=== PATIENT | male | born 1975 | race Caucasian/White ===

== ENCOUNTER 2018-01-31 17:38 | Inpatient (IN) | payer OTHER ==
[2018-01-31 19:51] VITALS: BMI 27.0
--- NOTE | 2018-02-01 01:18 | HP ---
COWS - Scale Resting Pulse: 1= WA 81-100 Sweatin=Flushed/Facial Moisture Restless Observation: 0= Sits Still Pupil Size: 1= Pupils >than Normal Bone or Joint Aches: 2= Severe Diffuse Aches Runny Nose/ Eye Tearin= Nasal Congestion GI Upset > 30mins: 3= Vomiting/Diarrhea (vomiting x 3, diarrhea x 2) Tremor Observation: 2= Slight Tremor Visible Yawning Observation: 0= None Anxiety or Irritability: 2=Irritable/Anxious Goose Flesh Skin: 0=Smooth Skin COWS Score: 14 CIWA Score - CIWA Score Nausea/Vomitin Muscle Tremors: 4-Moderate,w/Arms Extend Anxiety: 3 Agitation: 3 Paroxysmal Sweats: No Perspiration Orientation: 1-Uncertain about Date Tacttile Disturbances: 0-None Auditory Disturbances: 0-None Visual Disturbances: 0-None Headache: 2-Mild CIWA-Ar Total Score: 16 Admission ROS S - HPI Chief Complaint: Alcohol and benzo withdrawal symptoms Allergies/Adverse Reactions: Allergies Allergy/AdvReac Type Severity Reaction Status Date / Time abacavir Allergy Uncoded 02/01/18 01:13 History of Present Illness: 42 years old male with a long history of alcohol and benzo withdrawal symptoms is seeking admission to detox. Patient has been in previous detox and reports 3 years of sobriety. He has medical history of HIV+ and neuropathy. He denies suicide attempt and suicidal ideation at this time Exam Limitations: No Limitations - Ebola screening Have you traveled outside of the country in the last 21 days: No (N) Have you had contact with anyone from an Ebola affected area: No Have you been sick,other than usual withdrawal symptoms: No Do you have a fever: No - Review of Systems Constitutional: Chills, Loss of Appetite, Malaise, Changes in sleep, Weakness EENT: reports: No Symptoms Reported Respiratory: reports: No Symptoms reported GI: reports: Diarrhea, Poor Appetite, Poor Fluid Intake, Vomiting : reports: No Symptoms Reported Musculoskeletal: reports: Back Pain, Joint Pain Integumentary: reports: No Symptoms Reported Neuro: reports: Headache Endocrine: reports: No Symptoms Reported Hematology: reports: No Symptoms Reported Psychiatric: reports: Anxious, Depressed Other Systems: Reviewed and Negative Patient History - Patient Medical History Hx Anemia: No Hx Asthma: No Hx Chronic Obstructive Pulmonary Disease (COPD): No Hx Cancer: No Hx Cardiac Disorders: No Hx Congestive Heart Failure: No Hx Hypertension: No Hx Hypercholesterolemia: No Hx Pacemaker: No HX Cerebrovascular Accident: No Hx Seizures: No Hx Dementia: No Hx Diabetes: No Hx Gastrointestinal Disorders: No Hx Liver Disease: No Hx Genitourinary Disorders: No Hx Sexually Transmitted Disorders: No Hx Renal Disease (ESRD): No Hx Thyroid Disease: No Hx Human Immunodeficiency Virus (HIV): Yes (Combivir, ) Hx Hepatitis C: No Hx Depression: Yes (Not on medication) Hx Suicide Attempt: No (Denies suicide attempt and suicidal ideatio at this time ) Hx Bipolar Disorder: No Hx Schizophrenia: No - Patient Surgical History Past Surgical History: No Hx Neurologic Surgery: No Hx Cataract Extraction: No Hx Cardiac Surgery: No Hx Lung Surgery: No Hx Abdominal Surgery: No Hx Appendectomy: No Hx Cholecystectomy: No Hx Genitourinary Surgery: No Hx Section: No Hx Orthopedic Surgery: No Hx Hysterectomy: No Anesthesia Reaction: No - PPD History Previous Implant?: No (PPD positve) Documented Results: Positive w/o proof Implanted On Prior R Admission?: No PPD to be Administered?: No - Reproductive History Patient is a Female of Child Bearing Age (11 -55 yrs old): No (Male) Patient : No - Smoking Cessation Smoking history: Current every day smoker Have you smoked in the past 12 months: No Aproximately how many cigarettes per day: 10 Hx Chewing Tobacco Use: No Initiated information on smoking cessation: Yes 'Breaking Loose' booklet given: 02/02/18 - Substance & Tx. History Hx Alcohol Use: Yes Hx Substance Use: Yes Substance Use Type: Alcohol, Cocaine, Marijuana, Opiates Hx Substance Use Treatment: Yes - Substances Abused Alcohol Route: Oral Frequency: Daily Amount used: RIDGE 1 PINT Age of first use: 16 Date of Last Use: 01/31/18 Heroin Route: Injection Frequency: 3-6 times per week Amount used: 10 BAGS Age of first use: 16 Date of Last Use: 01/31/18 Alprazolam (Xanax) Route: Oral Frequency: Daily Amount used: 3MG Age of first use: 18 Date of Last Use: 01/31/18 Family Disease History - Family Disease History Family Disease History: Heart Disease: Father (RENAL FAILURE) Admission Physical Exam BHS - Vital Signs Vital Signs: Vital Signs - 24 hr 10/04/18 19:48 Temperature 97.8 F Pulse Rate 87 Respiratory 18 Rate Blood Pressure 168/8 L - Physical General Appearance: Yes: Moderate Distress HEENTM: Yes: Normal ENT Inspection, Normocephalic, Normal Voice, HALINA Respiratory: Yes: Lungs Clear, Normal Breath Sounds, No Respiratory Distress Neck: Yes: Supple Breast: Yes: Breast Exam Deferred Cardiology: Yes: Regular Rhythm, Regular Rate Abdominal: Yes: Normal Bowel Sounds Genitourinary: Yes: Within Normal Limits Back: Yes: Normal Inspection Musculoskeletal: Yes: Back pain, Muscle Pain Extremities: Yes: Tremors Neurological: Yes: bathroom tiling professional II-XII NML intact, Fully Oriented, Motor Strength 5/5, Normal Mood/Affect Integumentary: Yes: Warm Lymphatic: Yes: Within Normal Limits - Diagnostic (1) HIV (human immunodeficiency virus infection) Current Visit: Yes Status: Chronic (2) Depression Current Visit: Yes Status: Acute Qualifiers: Depression Type: unspecified Qualified Code(s): F32.9 - Major depressive disorder, single episode, unspecified Cleared for Admission [facility] - Detox or Rehab [facility] Level of Care: Medically Managed Detox Regimen/Protocol: Librium [facility] Breath Alcohol Content Breath Alcohol Content: 0.075 Urine Drug Screen - Results Drug Screen Negative: No Urine Drug Screen Results: BELA-Cocaine, BZO-Benzodiazepines, MTD-Methadone, OXY- Oxycodone
[2018-02-01] MEDS ORDERED: MAGNESIUM CITRATE 300 ML BOTTLE PO PRN (02:58)
[2018-02-01] MEDS ORDERED: MENTHOL/PHENOL 1 EACH UD MM PRN (02:58)
[2018-02-01] MEDS ORDERED: MAGNESIUM HYDROX 2400MG/30ML ORAL SUSPENSION 30 ML CUP PO PRN (02:58)
[2018-02-01] MEDS ORDERED: IBUPROFEN 400 MG TABLET (FP) PO PRN (02:58)
[2018-02-01] MEDS ORDERED: LOPERAMIDE HCL 2 MG CAPSULE PO PRN (02:58)
[2018-02-01] MEDS ORDERED: chlordiazePOXIDE HCL 25 MG CAPSULE PO PRN (02:58)
[2018-02-01] MEDS ORDERED: guaiFENesin/D-METHORPHAN HB 10 ML UNIT-DOSE CUPS PO PRN (02:58)
[2018-02-01] MEDS ORDERED: P-EPHED 60MG/TRIPROLIDI 2.5MG TABLET PO PRN (02:58)
[2018-02-01] MEDS ORDERED: ACETAMINOPHEN 325 MG TABLET (FP) PO PRN (02:58)
[2018-02-01] MEDS ORDERED: NICOTINE POLACRILEX 2 MG GUM BC PRN (02:58)
[2018-02-01] MEDS: MAG HYDROX/AL HYDROX/SIMETH 30 ML UNIT-DOSE CUP PO PRN ×2 (03:54→22:20)
[2018-02-01] MEDS: chlordiazePOXIDE HCL 25 MG CAPSULE PO SCH ×4 (06:19→22:18)
[2018-02-01] MEDS ORDERED: METHADONE HCL 5 MG TABLET PO SCH (09:45)
[2018-02-01] MEDS: NICOTINE 14 MG/24 HOURS TOPICAL PATCH TD SCH (10:20)
[2018-02-01] MEDS: PRENATAL VITAMINS W/ FOLIC ACID TABLET (FP) PO SCH (10:20)
[2018-02-01] MEDS ORDERED: METHADONE HCL 40 MG DISPERSABLE TABLET ONE ×2 (10:22→10:25)
[2018-02-01] MEDS ORDERED: METHADONE HCL 10 MG TABLET ONE (10:23)
[2018-02-01] MEDS: METHADONE 200 MG, METHADONE 20 MG PO SCH (10:26)
[2018-02-01] MEDS ORDERED: FLU VACCINE QUAD 60 MCG/0.5 ML (MDV 18-19) IM ONE (12:00)
--- NOTE | 2018-02-01 12:29 | PN ---
BHS CIWA - CIWA Score Nausea/Vomitin Muscle Tremors: 3 Anxiety: 2 Agitation: 0-Normal Activity Paroxysmal Sweats: 3 Orientation: 0-Oriented Tacttile Disturbances: 0-None Auditory Disturbances: 0-None Visual Disturbances: 0-None Headache: 2-Mild CIWA-Ar Total Score: 13 BHS Progress Note (SOAP) Subjective: PATIENT PRESENTS WITH HEADACHE, SWEATS, SHAKES AND DIARRHEA Objective: 02/01/18 12:27 Vital Signs Temperature 96.6 F L 02/01/18 09:41 Pulse Rate 53 L 02/01/18 09:41 Respiratory Rate 18 02/01/18 09:41 Blood Pressure 125/63 02/01/18 09:41 O2 Sat by Pulse Oximetry (%) PE: SKIN WARM AND MOIST ALERT AND ORIENTED CAR S1S2 RESP CTA BL GI SOFT, BS+, NT EXT +TREMORS PSYCH ANXIOUS NEURO PUPILS MODERATELY DILATED Assessment: 02/01/18 12:28 WITHDRAWAL SYNDROME Plan: CONTINUE DETOX ORDERED ENCOURAGE ORAL FLUIDS CONTINUE IMMODIUM PRN CONTINUE TO MONITOR
--- NOTE | 2018-02-01 13:35 | CONSULT ---
[facility] Psychiatric Consult - Data Date of interview: 02/01/18 Admission source: [facility] Identifying data: First admission to [facility] for this 42 y/o male seeking detoxification treatment,on , for heroin,xanax and alcohol dependence.Patient is ,a father of two,homeless,unemployed and supported on SSI benefits. Substance Abuse History: Confirmed by the patient in gthis interview.Details in current [facility] report as follows : Smoking history: Current every day smoker. Have you smoked in the past 12 months: No. Aproximately how many cigarettes per day: 10. Hx Chewing Tobacco Use: No. Initiated information on smoking cessation: Yes. 'Breaking Loose' booklet given: 02/02/18. - Substance & Tx. History. Hx Alcohol Use: Yes. Hx Substance Use: Yes. Substance Use Type: Alcohol, Cocaine, Marijuana, Opiates. Hx Substance Use Treatment: Yes. - Substances Abused. Alcohol. Route: Oral. Frequency: Daily. Amount used: RIDGE 1 PINT. Age of first use: 16. Date of Last Use: 01/31/18. Heroin. Route: Injection. Frequency: 3-6 times per week. Amount used: 10 BAGS. Age of first use: 16. Date of Last Use: 01/31/18. Alprazolam (Xanax). Route: Oral. Frequency: Daily. Amount used: 3MG. Age of first use: 18. Date of Last Use: 01/31/18 Medical History: HIV infection (on HAART medications). Psychiatric History: Patient denies. Physical/Sexual Abuse/Trauma History: Patient informs that he served 12 years in the [employer]. Discharged in 2005. Saw combat operations on various theaters ([place] + [place]).No nightmares or flashbacks reported in this session. Additional Comment: Urine Drug Screen Results: BELA-Cocaine, BZO-Benzodiazepines , MTD-Methadone, OXY-Oxycodone.Noted. Mental Status Exam - Mental Status Exam Alert and Oriented to: Time, Place, Person Cognitive Function: Good Patient Appearance: Disheveled Mood: Nervous, Withdrawn, Anxious Affect: Mood Congruent Patient Behavior: Fatigued, Cooperative Speech Pattern: Clear, Appropriate Voice Loudness: Normal Thought Process: Goal Oriented Thought Disorder: Not Present Hallucinations: Denies Suicidal Ideation: Denies Homicidal Ideation: Denies Insight/Judgement: Poor Sleep: Poorly (wants trazodone ), Difficulty falling asleep Appetite: Good Muscle strength/Tone: Normal Gait/Station: Normal Psychiatric Findings - Problem List (Horace 1, 2,3) (1) Opioid dependence on agonist therapy Current Visit: Yes Status: Acute (2) Alcohol dependence Current Visit: Yes Status: Acute (3) Nicotine dependence Current Visit: Yes Status: Acute (4) Substance induced mood disorder Current Visit: Yes Status: Acute (5) Insomnia Current Visit: Yes Status: Acute - Initial Treatment Plan Initial Treatment Plan: Psychoeducation.Sleep hygiene.Detoxification in progress.Trazodone 50 mg po hs. Side effects/benefits discussed with the patient.Made aware of risk of priapism.Mr Cavazos agrees to this careplan.Observation.
[2018-02-01] MEDS ORDERED: MELATONIN 5 MG TABLETS PO PRN (22:00)
[2018-02-01] MEDS: THIAMINE HCL 100 MG TABLET (FP) PO SCH (22:18)
[2018-02-01] MEDS: traZODone HCL 50 MG TABLET (FP) PO SCH (22:18)
[2018-02-02] MEDS ORDERED: METHADONE HCL 40 MG DISPERSABLE TABLET ONE (04:27)
[2018-02-02] MEDS ORDERED: METHADONE HCL 10 MG TABLET ONE (04:27)
[2018-02-02] MEDS: chlordiazePOXIDE HCL 25 MG CAPSULE PO SCH ×4 (05:32→22:36)
[2018-02-02] MEDS: METHADONE 200 MG, METHADONE 20 MG PO SCH (05:32)
[2018-02-02 10:08] LABS: HEMATOCRIT 32.1 % (35.4-49); HEMOGLOBIN 10.6 GM/dL (11.7-16.9); MCH 38.3 pg (25.7-33.7); PLATELET COUNT 184 K/MM3 (134-434); RBC 2.77 M/mm3 (4.00-5.60); RDW 14.3 % (11.9-15.9); WHITE BLOOD COUNT 3.5 K/mm3 (4.0-10.0)
[2018-02-02] MEDS: NICOTINE 14 MG/24 HOURS TOPICAL PATCH TD SCH (10:28)
[2018-02-02] MEDS: PRENATAL VITAMINS W/ FOLIC ACID TABLET (FP) PO SCH (10:28)
[2018-02-02 10:53] LABS: ALBUMIN 2.7 g/dl (3.4-5.0); ALK PHOS 72 U/L (45-117); ANION GAP 4 MMOL/L (8-16); BILIRUBIN,TOTAL 0.2 mg/dL (0.2-1); BLOOD UREA NITROGEN 20 mg/dL (7-18); CALCIUM 8.5 mg/dL (8.5-10.1); CHLORIDE 105 mmol/L (98-107); CO2 29 mmol/L (21-32); CREATININE 1.7 mg/dL (0.55-1.3); GLUCOSE,RANDOM 95 mg/dL (74-106); POTASSIUM 4.4 mmol/L (3.5-5.1); SGOT/AST 25 U/L (15-37); SGPT/ALT 27 U/L (13-61); SODIUM 139 mmol/L (136-145)
--- NOTE | 2018-02-02 11:55 | PN ---
S CIWA - CIWA Score Nausea/Vomitin-Mild Nausea/No Vomiting Muscle Tremors: 2 Anxiety: 2 Agitation: 1-Slight > Activity Paroxysmal Sweats: 2 Orientation: 0-Oriented Tacttile Disturbances: 1-Very Mild Itch/Numbness Auditory Disturbances: 0-None Visual Disturbances: 0-None Headache: 0-None Present CIWA-Ar Total Score: 9 BHS Progress Note (SOAP) Subjective: PATIENT C/O ANXIETY, SHAKES, MILD NAUSEA AND NUMBNESS/TINGLING TO FINGERS. PATIENT REQUESTING HIV MEDICATION. STATES HE IS TREATED BY DR. BLANCO FROM [facility]. REPORTS COMPLIANCE WITH MEDICATION UP UNTIL DAY OF ADMISSION BUT FORGOT MEDICATION AT HOME. Objective: 02/02/18 11:56 Vital Signs Temperature 98.8 F 02/02/18 10:32 Pulse Rate 83 02/02/18 10:32 Respiratory Rate 18 02/02/18 10:32 Blood Pressure 139/69 02/02/18 10:32 O2 Sat by Pulse Oximetry (%) Laboratory Tests 02/02/18 02/02/18 02/02/18 08:00 08:00 08:00 WBC 3.5 L RBC 2.77 L Hgb 10.6 L Hct 32.1 L MCV 116.0 H MCH 38.3 H MCHC 33.0 RDW 14.3 Plt Count 184 MPV 8.0 Sodium 139 Potassium 4.4 Chloride 105 Carbon Dioxide 29 Anion Gap 4 L BUN 20 H Creatinine 1.7 H Creat Clearance w eGFR 44.00 Random Glucose 95 Calcium 8.5 Total Bilirubin 0.2 AST 25 ALT 27 Alkaline Phosphatase 72 Total Protein 7.0 Albumin 2.7 L RPR Titer Nonreactive SKIN WARM AND DRY ALERT AND ORIENTED CAR S1S2 RESP CTA BL EXT +TREMORS, FULL ROM +ANXIOUS Assessment: 02/02/18 11:58 WITHDRAWAL SYNDROME Plan: CONTINUE DETOX ENCOURAGE ORAL FLUIDS CONTINUE TO MONITOR CLINICALLY ANTIVIRAL MEDICATION CONFIRMED IN OUT PATIENT SUMMARY. LAST PRESCRIPTION FOR PREZISTA, LAMIVUDINE/ZIDOVUDINE, NORVIR LAST FILLED 01/14/18 AND [facility]. HIV MEDICATION ORDERED
[2018-02-02] MEDS: RITONAVIR 100 MG TABLET PO SCH ×2 (14:50→22:37)
[2018-02-02] MEDS: DARUNAVIR ETHANOLATE 600 MG TAB PO SCH ×2 (14:52→22:37)
[2018-02-02] MEDS: lamiVUDine/ZIDOVUDINE 150/300 1 COMBO TABLET PO SCH ×2 (16:04→22:36)
--- NOTE | 2018-02-02 17:32 | EKG ---
Test Reason : Blood Pressure : / mmHG Vent. Rate : 061 BPM Atrial Rate : 061 BPM P-R Int : 150 ms QRS Dur : 098 ms QT Int : 424 ms P-R-T Axes : 062 076 058 degrees QTc Int : 426 ms NORMAL SINUS RHYTHM NORMAL ECG NO PREVIOUS ECGS AVAILABLE Confirmed by ESTEE MUNGUIA, LUCY ([id number]) on 02/02/2018 5:32:03 PM Referred By: Confirmed By:LUCY FONTANEZ MD
[2018-02-02] MEDS: traZODone HCL 50 MG TABLET (FP) PO SCH (22:36)
[2018-02-02] MEDS: THIAMINE HCL 100 MG TABLET (FP) PO SCH (22:37)
[2018-02-03] MEDS ORDERED: METHADONE HCL 10 MG TABLET ONE (04:16)
[2018-02-03] MEDS ORDERED: METHADONE HCL 40 MG DISPERSABLE TABLET ONE (04:16)
[2018-02-03] MEDS: METHADONE 200 MG, METHADONE 20 MG PO SCH (05:57)
[2018-02-03] MEDS: chlordiazePOXIDE 5 MG CAPSULE PO SCH ×4 (05:58→22:03)
[2018-02-03] MEDS: PRENATAL VITAMINS W/ FOLIC ACID TABLET (FP) PO SCH (10:13)
[2018-02-03] MEDS: NICOTINE 14 MG/24 HOURS TOPICAL PATCH TD SCH (10:13)
[2018-02-03] MEDS: RITONAVIR 100 MG TABLET PO SCH ×2 (10:14→22:02)
[2018-02-03] MEDS: DARUNAVIR ETHANOLATE 600 MG TAB PO SCH ×2 (10:14→22:02)
[2018-02-03] MEDS: lamiVUDine/ZIDOVUDINE 150/300 1 COMBO TABLET PO SCH ×2 (10:14→22:02)
--- NOTE | 2018-02-03 12:39 | PN ---
S Progress Note (SOAP) Subjective: joints pain sweat tremor reported history of renal insufficiency negative sonogram follow up with nephrology Objective: 02/03/18 12:38 Vital Signs Temperature 98.3 F 02/03/18 10:29 Pulse Rate 81 02/03/18 10:29 Respiratory Rate 18 02/03/18 10:29 Blood Pressure 117/72 02/03/18 10:29 O2 Sat by Pulse Oximetry (%) Laboratory Last Values WBC 3.5 K/mm3 (4.0-10.0) L 02/02/18 08:00 RBC 2.77 M/mm3 (4.00-5.60) L 02/02/18 08:00 Hgb 10.6 GM/dL (11.7-16.9) L 02/02/18 08:00 Hct 32.1 % (35.4-49) L 02/02/18 08:00 MCV 116.0 fl (80-96) H 02/02/18 08:00 MCH 38.3 pg (25.7-33.7) H 02/02/18 08:00 MCHC 33.0 g/dl (32.0-35.9) 02/02/18 08:00 RDW 14.3 % (11.9-15.9) 02/02/18 08:00 Plt Count 184 K/MM3 (134-434) 02/02/18 08:00 MPV 8.0 fl (7.5-11.1) 02/02/18 08:00 Sodium 139 mmol/L (136-145) 02/02/18 08:00 Potassium 4.4 mmol/L (3.5-5.1) 02/02/18 08:00 Chloride 105 mmol/L (98-107) 02/02/18 08:00 Carbon Dioxide 29 mmol/L (21-32) 02/02/18 08:00 Anion Gap 4 MMOL/L (8-16) L 02/02/18 08:00 BUN 20 mg/dL (7-18) H 02/02/18 08:00 Creatinine 1.7 mg/dL (0.55-1.3) H 02/02/18 08:00 Creat Clearance w eGFR 44.00 (>60) 02/02/18 08:00 Random Glucose 95 mg/dL (74-106) 02/02/18 08:00 Calcium 8.5 mg/dL (8.5-10.1) 02/02/18 08:00 Total Bilirubin 0.2 mg/dL (0.2-1) 02/02/18 08:00 AST 25 U/L (15-37) 02/02/18 08:00 ALT 27 U/L (13-61) 02/02/18 08:00 Alkaline Phosphatase 72 U/L (45-117) 02/02/18 08:00 Total Protein 7.0 g/dl (6.4-8.2) 02/02/18 08:00 Albumin 2.7 g/dl (3.4-5.0) L 02/02/18 08:00 RPR Titer Nonreactive (NONREACTIVE) 02/02/18 08:00 lab noted patient is trying to find someone to bring in hiv [facility]on Assessment: 02/03/18 12:39 withdrawal sx Plan: continue detox
[2018-02-03] MEDS: THIAMINE HCL 100 MG TABLET (FP) PO SCH (22:02)
[2018-02-03] MEDS: MAG HYDROX/AL HYDROX/SIMETH 30 ML UNIT-DOSE CUP PO PRN (22:02)
[2018-02-03] MEDS: traZODone HCL 50 MG TABLET (FP) PO SCH (22:03)
[2018-02-04] MEDS ORDERED: METHADONE HCL 40 MG DISPERSABLE TABLET ONE (05:17)
[2018-02-04] MEDS ORDERED: METHADONE HCL 10 MG TABLET ONE (05:18)
[2018-02-04] MEDS: chlordiazePOXIDE HCL 10 MG CAPSULE PO SCH ×3 (05:46→18:29)
[2018-02-04] MEDS: METHADONE 200 MG, METHADONE 20 MG PO SCH (05:46)
[2018-02-04 10:11] LABS: HEMATOCRIT 37.5 % (35.4-49); HEMOGLOBIN 12.2 GM/dL (11.7-16.9); MCH 38.5 pg (25.7-33.7); MCHC 32.6 g/dl (32.0-35.9); MEAN CELL VOLUME 118.1 fl (80-96); MEAN PLT VOLUME 7.6 fl (7.5-11.1); PLATELET COUNT 232 K/MM3 (134-434); RBC 3.17 M/mm3 (4.00-5.60); RDW 14.9 % (11.9-15.9); WHITE BLOOD COUNT 4.4 K/mm3 (4.0-10.0)
[2018-02-04 10:31] LABS: ALBUMIN 3.3 g/dl (3.4-5.0); ALK PHOS 79 U/L (45-117); ANION GAP 2 MMOL/L (8-16); BILIRUBIN,TOTAL 0.2 mg/dL (0.2-1); BLOOD UREA NITROGEN 23 mg/dL (7-18); CALCIUM 9.6 mg/dL (8.5-10.1); CHLORIDE 105 mmol/L (98-107); CO2 31 mmol/L (21-32); CREATININE 1.8 mg/dL (0.55-1.3); GLUCOSE,RANDOM 84 mg/dL (74-106); POTASSIUM 4.7 mmol/L (3.5-5.1); SGOT/AST 20 U/L (15-37); SGPT/ALT 27 U/L (13-61); SODIUM 138 mmol/L (136-145); TOT PROT 8.1 g/dl (6.4-8.2)
[2018-02-04] MEDS: PRENATAL VITAMINS W/ FOLIC ACID TABLET (FP) PO SCH (11:04)
[2018-02-04] MEDS: RITONAVIR 100 MG TABLET PO SCH (11:04)
[2018-02-04] MEDS: DARUNAVIR ETHANOLATE 600 MG TAB PO SCH (11:04)
[2018-02-04] MEDS: NICOTINE 14 MG/24 HOURS TOPICAL PATCH TD SCH (11:06)
[2018-02-04] MEDS: lamiVUDine/ZIDOVUDINE 150/300 1 COMBO TABLET PO SCH (11:07)
--- NOTE | 2018-02-04 15:33 | DS ---
[facility] Detox Discharge Summary Admission Date: 02/01/18 Discharge Date: 02/04/18 - History Present History: Alcohol Dependence, Opioid Dependence, Sedative Dependence Additional Comments: 42 years old male admitted on 02/01/18 for alcohol benzo and opiate withdrawal sx completed detox regimen tolerated well denies alcohol withdrawal sx alert oriented x 3 no acute distress aftercare revelation - Physical Exam Results Vital Signs: Vital Signs Temperature 98.6 F 02/04/18 13:07 Pulse Rate 78 02/04/18 13:07 Respiratory Rate 18 02/04/18 13:07 Blood Pressure 130/65 02/04/18 13:07 O2 Sat by Pulse Oximetry (%) Pertinent Admission Physical Exam Findings: alcohol benzo opiate withdrawal sx Vital Signs Temperature 98.6 F 02/04/18 13:07 Pulse Rate 78 02/04/18 13:07 Respiratory Rate 18 02/04/18 13:07 Blood Pressure 130/65 02/04/18 13:07 O2 Sat by Pulse Oximetry (%) Laboratory Last Values WBC 4.4 K/mm3 (4.0-10.0) 02/04/18 07:30 RBC 3.17 M/mm3 (4.00-5.60) L 02/04/18 07:30 Hgb 12.2 GM/dL (11.7-16.9) 02/04/18 07:30 Hct 37.5 % (35.4-49) D 02/04/18 07:30 MCV 118.1 fl (80-96) H 02/04/18 07:30 MCH 38.5 pg (25.7-33.7) H 02/04/18 07:30 MCHC 32.6 g/dl (32.0-35.9) 02/04/18 07:30 RDW 14.9 % (11.9-15.9) 02/04/18 07:30 Plt Count 232 K/MM3 (134-434) D 02/04/18 07:30 MPV 7.6 fl (7.5-11.1) 02/04/18 07:30 Sodium 138 mmol/L (136-145) 02/04/18 07:30 Potassium 4.7 mmol/L (3.5-5.1) 02/04/18 07:30 Chloride 105 mmol/L (98-107) 02/04/18 07:30 Carbon Dioxide 31 mmol/L (21-32) 02/04/18 07:30 Anion Gap 2 MMOL/L (8-16) L 02/04/18 07:30 BUN 23 mg/dL (7-18) H 02/04/18 07:30 Creatinine 1.8 mg/dL (0.55-1.3) H 02/04/18 07:30 Creat Clearance w eGFR 41.19 (>60) 02/04/18 07:30 Random Glucose 84 mg/dL (74-106) 02/04/18 07:30 Calcium 9.6 mg/dL (8.5-10.1) 02/04/18 07:30 Total Bilirubin 0.2 mg/dL (0.2-1) 02/04/18 07:30 AST 20 U/L (15-37) 02/04/18 07:30 ALT 27 U/L (13-61) 02/04/18 07:30 Alkaline Phosphatase 79 U/L (45-117) 02/04/18 07:30 Total Protein 8.1 g/dl (6.4-8.2) 02/04/18 07:30 Albumin 3.3 g/dl (3.4-5.0) L 02/04/18 07:30 RPR Titer Nonreactive (NONREACTIVE) 02/02/18 08:00 lab noted patient aware of renal function limitation seen by covered buckle assembler acknowledge healthy food choices - Treatment Hospital Course: Detox Protocol Followed, Detoxed Safely, Responded well, Discharged Condition Good, Rehab Referral Accepted Patient has Accepted a Rehab Referral to: [facility] - Medication Discharge Medications: Ambulatory Orders Darunavir Ethanolate [Prezista -] 600 mg BID 02/01/18 Gabapentin 600 mg PO BID 02/01/18 Lamivudine/Zidovudine 150/300 [Combivir Tablet 300/150 -] 1 combo PO BID Ritonavir [Norvir -] 100 mg BID 02/01/18 - Diagnosis (1) Nicotine dependence Current Visit: Yes Status: Acute Qualifiers: Nicotine product type: cigarettes Substance use status: in withdrawal Qualified Code(s): F17.213 - Nicotine dependence, cigarettes, with withdrawal (2) Opioid dependence on agonist therapy Current Visit: Yes Status: Acute (3) HIV (human immunodeficiency virus infection) Current Visit: Yes Status: Chronic - AMA Did Patient Leave Against Medical Advice: No
[2018-02-04 17:39] VITALS: BP 126/73; PULSE 83; TEMP 98.2
== END 2018-02-04 17:38 | disposition other institution (70) | DRG 773 ==
LOC: YASAS 17:38 → Y6N 02-01 02:32
PROC: HZ2ZZZZ Detoxification Services for Substance Abuse Treatment (ICD-10-PCS; principal; 2018-02-01)
DX: F10.230 Alcohol dependence with withdrawal, uncomplicated (principal); F13.230 Sedative, hypnotic or anxiolytic dependence with withdrawal, uncomplicated; F11.23 Opioid dependence with withdrawal; F17.213 Nicotine dependence, cigarettes, with withdrawal; F19.24 Other psychoactive substance dependence with psychoactive substance-induced mood disorder; F32.9 Major depressive disorder, single episode, unspecified; Z21 Asymptomatic human immunodeficiency virus [HIV] infection status; G47.00 Insomnia, unspecified; G62.9 Polyneuropathy, unspecified
CPT/HCPCS: 36415; 71046-TC-FY; 80053; 85027; 86593; 90688; 93005; 93010; G0008